=== PATIENT | male | born 1950 | race Caucasian/White ===

== ENCOUNTER 2016-04-03 15:36 | Inpatient (IN) | payer OTHER ==
[~2016-04-03] VITALS: Ht 188 cm; Wt 76.5 kg
[~2016-04-03 15:36] MED LIST: CARV25TA2 PO; DIGO0.2576 PO; KPP/1000 PO; LOSA1TAB PO; WARF-284 PO; WARF5TAB90 PO
[2016-04-03] MEDS ORDERED: SODIUM CHLORIDE 0.9% 1000ML 1,000 ML IV STA (15:44)
[2016-04-03] MEDS ORDERED: DIPHTHERIA/TETANUS/PERTUSSIS 0.5 ML SYR/VIAL IM. ONE (15:45)
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
[2016-04-03] MEDS ORDERED: DIGOXIN 0.125 MG TAB PO SCH (16:00)
[2016-04-03] MEDS ORDERED: WARFARIN SOD 5 MG TAB PO SCH (16:00)
[2016-04-03] MEDS ORDERED: OPTIRAY 320 IV PRN (16:00)
[2016-04-03 16:08] LABS: ISTAT CREATININE 0.8 mg/dl (0.6-1.3); ISTAT HEMOGLOBIN 15.6 g/dl (14.0-18.0); ISTAT IONIZED CALCIUM 1.24 mmol/l (1.12-1.32)
[2016-04-03] MEDS ORDERED: LEVE750T PO (16:14)
[2016-04-03] MEDS ORDERED: WARF5TAB90 PO (16:14)
[2016-04-03] MEDS ORDERED: LNX125 PO (16:14)
[2016-04-03 16:15] LABS: BASO % 0.3 %; BASO ABS # 0.04 K/uL (0-0.2); COMPLETE YES; EOS % 3.5 %; HEMATOCRIT 45.3 % (42-52); IG% 0.3 %; LYMPH % 9.7 %; LYMPH ABS # 1.15 K/uL (1.2-3.4); MEAN CELL VOLUME 82.8 fL (80-100); MEAN CORPUSCULAR HEMOGLOBIN 28.9 pg (25-34); MEAN CORPUSCULAR HGB CONC 34.9 g/dl (32-36); MEAN PLATELET VOLUME 10.7 fL (7.4-10.4); MONO % 9.4 %; NEUT % 76.8 %; PLATELET COUNT 156 K/uL (130-400); RED BLOOD COUNT 5.47 M/uL (4.7-6.1); WHITE BLOOD COUNT 11.84 K/uL (4.8-10.8)
[2016-04-03 16:30] LABS: INR 2.6 (0.9-1.1); PARTIAL THROMBOPLASTIN RATIO 1.7; PROTHROMBIN TIME (PATIENT) 28.5 SECONDS (9.0-12.0)
[2016-04-03 16:37] LABS: BLOOD UREA NITROGEN 12 mg/dl (7-18); BUN/CREATININE RATIO 13.2 (10-20); CALCIUM 9.1 mg/dl (8.5-10.1); CARBON DIOXIDE 31 mmol/L (21-32); CHLORIDE 102 mmol/L (98-107); CREATININE 0.94 mg/dl (0.60-1.40); GLUCOSE 103 mg/dl (70-99); POTASSIUM 4.5 mmol/L (3.5-5.1); SODIUM 138 mmol/L (136-145)
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
[2016-04-03 18:41] LABS: CKMB/CK RATIO 1.6 (0-3.0)
[2016-04-03] MEDS ORDERED: LORAZEPAM 2 MG/ML 1 ML VIAL IV PRN (18:45)
[2016-04-03] MEDS ORDERED: ONDANSETRON INJ 2 MG/ML 2 ML VIAL IV PRN (18:45)
[2016-04-03] MEDS ORDERED: ACETAMINOPHEN 325 MG TAB PO PRN (18:45)
[2016-04-03] MEDS ORDERED: NITROGLYCERIN 0.4 MG SL PER TAB CHARGE SL PRN (18:45)
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
[2016-04-03] MEDS ORDERED: MoRPHine SULFATE 2 MG/ML CARP IV PRN (19:15)
[2016-04-03 19:52] VITALS: O2SAT 97
[2016-04-03 20:30] VITALS: BP 163/81; PULSE 110; TEMP 36.8; Ht 188 cm; Wt 76.5 kg
[2016-04-03] MEDS ORDERED: FISHOIL PO (21:17)
[2016-04-03] MEDS ORDERED: LORAZEPAM INJ 1 MG in SYRINGE 0.5 ML IV PRN (21:45)
[2016-04-03] MEDS: LEVETIRACETAM 500 MG TAB PO SCH (22:35)
[2016-04-03] MEDS: CARVEDILOL 25 MG TAB PO SCH (22:36)
[2016-04-03] MEDS: OMEGA-3 (PURIFIED FISH OIL) 1 GM CAP PO SCH (22:37)
[2016-04-04 00:18] VITALS: BP 158/81; PULSE 86; TEMP 36.8; O2SAT 91
[2016-04-04 04:15] VITALS: BP 104/61; PULSE 75; TEMP 36.8; O2SAT 92
[2016-04-04 07:42] LABS: HEMATOCRIT 41.2 % (42-52); MEAN CELL VOLUME 81.9 fL (80-100); MEAN CORPUSCULAR HEMOGLOBIN 28.6 pg (25-34); MEAN PLATELET VOLUME 9.9 fL (7.4-10.4); PLATELET COUNT 126 K/uL (130-400); RED BLOOD COUNT 5.03 M/uL (4.7-6.1)
[2016-04-04 07:50] LABS: INR 2.3 (0.9-1.1); PROTHROMBIN TIME (PATIENT) 25.1 SECONDS (9.0-12.0)
[2016-04-04] MEDS: LEVETIRACETAM 500 MG TAB PO SCH (08:16)
[2016-04-04] MEDS: OMEGA-3 (PURIFIED FISH OIL) 1 GM CAP PO SCH (08:17)
[2016-04-04] MEDS: CARVEDILOL 25 MG TAB PO SCH (08:17)
[2016-04-04 08:19] VITALS: BP 144/84; PULSE 76
[2016-04-04 08:23] VITALS: BP 126/72; PULSE 55; TEMP 36.8; O2SAT 97
[2016-04-04 08:23] LABS: BUN/CREATININE RATIO 11.4 (10-20); CALCIUM 8.5 mg/dl (8.5-10.1); CREATININE 0.83 mg/dl (0.60-1.40); MAGNESIUM 2.1 mg/dl (1.8-2.4); POTASSIUM 3.9 mmol/L (3.5-5.1)
[2016-04-04] MEDS ORDERED: LOSARTAN POTASSIUM 25 MG TAB PO SCH (09:00)
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
[2016-04-04 11:30] VITALS: BP 118/73; PULSE 73; TEMP 36.8; O2SAT 93
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
--- NOTE | 2016-04-04 17:25 | ECHOCARDIOGRAM REPORT ---
*NOTICE TO RECEIVING DEMOCRAT AGENCY This information is strictly Confidential and protected under [place] law. [place] law prohibits you from making any further disclosure of this information unless further disclosure is expressly permitted by the written consent of the person to whom it pertains or is authorized by law. A general authorization for the release of medical or other information is not sufficient for this purpose. Hospital accepts no responsibility if the information is made available to any other person, INCLUDING THE PATIENT. Interpretation Summary * Name: TERESA STAPLETON V Study Date: 04/04/2016 10:11 AM BP: 126/72 mmHg * Patient Location: [facility]\S\N287\S\1 HR: 55 * : 1950 (M/d/yyyy) Gender: Male Height: 74 in * Age: 65 yrs Ethnicity: [place] Weight: 168 lb * Ordering Physician: Priyanka Clark * Referring Physician: RICK * Performed By: Mari Rossi RDCS * * Reason For Study: PERICARDIAL DISEASE * BSA: 2.0 m2 * History: PERICARDIAL DISEASE * -- Conclusions -- * 1. Mildly dilated LV. Mild concentric LVH. * 2. Low normal LV systolic function. LVEF 50-55%. No regional wall motion abnormalities. * 3. Borderline dilated RV, normal RV function * 4. Hczf-ax-xwybtkcq eccentric MR. * 5. Normal estimated RA and PA pressures * 6. No pericardial effusion. * 7. Compared with prior study on 10/28/2011: No significant change Procedure Details * A complete two-dimensional transthoracic echocardiogram was performed (2D, M-mode, Doppler and color flow Doppler). Left Ventricle * The left ventricle is mildly dilated. * There is mild concentric left ventricular hypertrophy. * Ejection Fraction = 50-55%. Right Ventricle * There is a pacemaker lead in the right ventricle. * Borderline right ventricular enlargement. * The right ventricular systolic function is normal as assessed by tricuspid annular plane systolic excursion (TAPSE) (normal >1.5 cm). Atria * The left atrium is severely dilated. * The right atrium is severely dilated. * No ASD detected; PFO is not assessed. Mitral Valve * The mitral valve leaflets appear thickened, but open well. * There is no mitral valve stenosis. * There is mild to moderate mitral regurgitation. * The mitral regurgitant jet is eccentrically directed. Tricuspid Valve * The tricuspid valve is not well visualized. * There is no tricuspid stenosis. * There is mild tricuspid regurgitation. Aortic Valve * The aortic valve opens well. * The aortic valve is trileaflet. * No hemodynamically significant valvular aortic stenosis. * There is no significant aortic regurgitation. Pulmonic Valve * The pulmonary valve is inadequately visualized, but the Doppler data is adequate for interpretation. * Pulmonic stenosis is absent. * There is no pulmonic valvular regurgitation. Great Vessels * The aortic root and proximal ascending aorta are normal sized. Pericardium/Pleural * There is no pericardial effusion. Great Vessels * Normal inferior vena cava diameter and respiratory variation suggests normal central venous pressure. MMode 2D Measurements and Calculations IVSd 1.2 cm IVSs 1.7 cm LVIDd 5.5 cm LVIDs 3.9 cm LVPWd 1.8 cm LVPWs 2.1 cm IVS/LVPW 0.68 FS 29.1 % EDV(Teich) 145.0 ml ESV(Teich) 64.7 ml EF(Teich) 55.4 % EDV(cubed) 162.8 ml ESV(cubed) 57.9 ml EF(cubed) 64.4 % % IVS thick 43.3 % % LVPW thick 16.9 % LV mass(C)d 362.0 grams LV mass(C)dI 179.4 grams/m\S\2 LV mass(C)s 324.7 grams LV mass(C)sI 160.9 grams/m\S\2 SV(Teich) 80.3 ml SI(Teich) 39.8 ml/m\S\2 SV(cubed) 104.8 ml SI(cubed) 52.0 ml/m\S\2 LA dimension 5.2 cm LVAd ap4 30.5 cm\S\2 LVLd ap4 8.0 cm EDV(MOD-sp4) 101.3 ml EDV(sp4-el) 98.1 ml LVAs ap4 20.0 cm\S\2 LVLs ap4 7.5 cm ESV(MOD-sp4) 49.3 ml ESV(sp4-el) 45.8 ml EF(MOD-sp4) 51.3 % EF(sp4-el) 53.3 % LVAd ap2 31.1 cm\S\2 LVLd ap2 8.0 cm EDV(MOD-sp2) 99.5 ml EDV(sp2-el) 102.8 ml LVAs ap2 19.9 cm\S\2 LVLs ap2 7.0 cm ESV(MOD-sp2) 53.8 ml ESV(sp2-el) 48.5 ml EF(MOD-sp2) 45.9 % EF(sp2-el) 52.8 % LVLd %diff -0.80 % EDV(MOD-bp) 100.7 ml LVLs %diff -7.15 % ESV(MOD-bp) 52.8 ml EF(MOD-bp) 47.5 % SV(MOD-sp4) 51.9 ml SI(MOD-sp4) 25.7 ml/m\S\2 SV(MOD-sp2) 45.7 ml SI(MOD-sp2) 22.6 ml/m\S\2 SV(MOD-bp) 47.9 ml SI(MOD-bp) 23.7 ml/m\S\2 SV(sp4-el) 52.3 ml SI(sp4-el) 25.9 ml/m\S\2 SV(sp2-el) 54.3 ml SI(sp2-el) 26.9 ml/m\S\2 Doppler Measurements and Calculations MV E max monique 85.4 cm/sec MV dec time 0.33 sec Ao V2 max 97.3 cm/sec Ao max PG 3.8 mmHg Ao max PG (full) 2.4 mmHg LV V1 max PG 1.4 mmHg LV V1 max 59.2 cm/sec MR max monique 434.4 cm/sec MR max PG 75.5 mmHg TR max monique 221.8 cm/sec
[2016-04-05] MEDS ORDERED: WARFARIN SOD 7.5 MG TAB PO SCH (16:00)
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
== END 2016-04-04 16:02 | disposition left against medical advice (07) | DRG 312 ==
LOC: ENRESERVTM → ENRESERVDT → EDBD 15:36 → C.EDC 15:38 → C.MED 18:37
PROVIDERS: ADMIT Internal Medicine; ATTEND Internal Medicine
DX: R55 Syncope and collapse (principal); I31.3 Pericardial effusion (noninflammatory); I42.9 Cardiomyopathy, unspecified; D68.61 Antiphospholipid syndrome; S22.41XA Multiple fractures of ribs, right side, initial encounter for closed fracture; V89.2XXA Person injured in unspecified motor-vehicle accident, traffic, initial encounter; R41.82 Altered mental status, unspecified; E78.5 Hyperlipidemia, unspecified; R91.1 Solitary pulmonary nodule; I48.2 Chronic atrial fibrillation; I10 Essential (primary) hypertension; G40.909 Epilepsy, unspecified, not intractable, without status epilepticus; I34.0 Nonrheumatic mitral (valve) insufficiency; I71.2 Thoracic aortic aneurysm, without rupture; F17.210 Nicotine dependence, cigarettes, uncomplicated; Z95.810 Presence of automatic (implantable) cardiac defibrillator; Z23 Encounter for immunization; Z87.74 Personal history of (corrected) congenital malformations of heart and circulatory system; Z79.01 Long term (current) use of anticoagulants; Z79.899 Other long term (current) drug therapy; Z53.21 Procedure and treatment not carried out due to patient leaving prior to being seen by health care provider

== ENCOUNTER → 2016-07-30 | Outpatient (CLI) | payer OTHER ==
[~2016-07-30] MED LIST changes: -DIGO0.2576 PO; +FISHOIL PO; -KPP/1000 PO; +LEVE750T PO; +LNX125 PO; -WARF-284 PO
== END | disposition home or self-care (01) ==
LOC: C.LABPBG 11:21
PROVIDERS: ATTEND Internal Medicine
DX: I48.2 Chronic atrial fibrillation (principal); Z11.59 Encounter for screening for other viral diseases; Z79.01 Long term (current) use of anticoagulants

== ENCOUNTER → 2016-08-09 | Outpatient (CLI) | payer OTHER ==
[2016-08-09 12:25] LABS: BASO % 0.5 %; BASO ABS # 0.05 K/uL (0-0.2); COMPLETE YES; EOS % 5.5 %; HEMATOCRIT 44.2 % (42-52); IG% 0.3 %; LYMPH % 18.6 %; LYMPH ABS # 1.77 K/uL (1.2-3.4); MEAN CELL VOLUME 85.2 fL (80-100); MEAN CORPUSCULAR HEMOGLOBIN 29.1 pg (25-34); MEAN CORPUSCULAR HGB CONC 34.2 g/dl (32-36); NEUT % 67.1 %; PLATELET COUNT 135 K/uL (130-400); RED BLOOD COUNT 5.19 M/uL (4.7-6.1); WHITE BLOOD COUNT 9.52 K/uL (4.8-10.8)
[2016-08-09 13:00] LABS: CALCIUM 9.3 mg/dl (8.5-10.1)
[2016-08-09 13:03] LABS: ALT/SGPT 18 U/L (12-78); BLOOD UREA NITROGEN 9 mg/dl (7-18); CARBON DIOXIDE 30 mmol/L (21-32); CHLORIDE 99 mmol/L (98-107); CREATININE 0.94 mg/dl (0.60-1.40); GLUCOSE 131 mg/dl (70-99); POTASSIUM 4.8 mmol/L (3.5-5.1); SODIUM 134 mmol/L (136-145)
[2016-08-09 13:14] LABS: ALB/GLOB RATIO 0.9 (0.9-2); ALKALINE PHOSPHATASE 51 U/L (45-117); AST/SGOT 15 U/L (15-37)
== END | disposition home or self-care (01) ==
LOC: C.LABPBG 10:25
PROVIDERS: ATTEND Internal Medicine
DX: Z51.81 Encounter for therapeutic drug level monitoring (principal); R53.83 Other fatigue

== ENCOUNTER → 2016-12-26 | Outpatient (CLI) | payer OTHER ==
--- NOTE | 2016-12-26 14:08 | DIAGNOSTIC IMAGING REPORT ---
(CHEST) THORAX WITHOUT CLINICAL HISTORY: 66 years-old Male presenting with ABNORMAL CHEST XRAY. TECHNIQUE: Multidetector CT imaging of the chest was performed without the use of intravenous contrast. IV contrast: None. A dose lowering technique was used consistent with the principles of ALARA (as low as reasonably achievable). COMPARISON: 04/03/2016. CT DOSE (mGy.cm): The estimated cumulative dose is 308.34 mGycm. FINDINGS: Registered Radiologic Technologist topogram: Unremarkable. On soft tissue windows, left-sided pacer with leads to the right ventricular apex. Scattered prominent mediastinal lymph nodes measuring up to 9 mm in short axis in the precarinal region. Evaluation of the ana paula is limited in the absence of intravenous contrast. Mild atherosclerosis of the aortic arch. Mild multichamber enlargement of the heart. Possible postsurgical changes of the interatrial septum. Coronary artery and mitral annular calcification. No pericardial or pleural effusion. Multiple nonobstructing renal calculi bilaterally. Severe parenchymal atrophy of the pancreas. On lung windows, dependent changes at the lung bases as well as bandlike opacity in the left lower lobe likely atelectasis. Incidental note made of an azygos lobe. Irregular solid peripheral 6 mm fissural nodule in the right upper lobe (series 4 image 148). Mild smooth interlobular septal thickening noted at the lung bases. Minimal groundglass opacity dependently in the posterior apical left upper lobe (series 4 image 65). Mild mosaic attenuation at the lung bases could suggest small airways disease. Airways patent. On bone windows, degenerative changes of the spine. IMPRESSION: 1. Stable appearance of the right upper lobe nodularity, unchanged since 12/09/2015. No new pulmonary nodule. 2. Mild interlobular septal thickening could suggest volume overload in the setting of cardiomegaly. No andrea pulmonary edema. 3. No acute intrathoracic pathology. 4. Multiple nonobstructing renal calculi bilaterally. Please refer to below summary of Fleischner Society 2017 recommendations for follow-up of incidental CT nodules (Doc Torres et al. Guidelines for management of incidental pulmonary nodules detected on CT images: From the Fleischner Society 2017. Radiology 2017; 284: 228-243.) SOLID NODULES Single nodule; size < 6 mm * Low risk patients: No routine follow-up * High risk patients: Optional CT at 12 months Single nodule; size 6-8 mm * Low risk patients: CT at 6-12 months, then consider CT at 18-24 months * High risk patients: CT at 6-12 months, then at 18-24 months Single nodule; size > 8 mm * Either low or high risk patients: Considered CT at 3 months, PET/CT, or tissue sampling Multiple nodules; size < 6 mm * Low risk patients: No routine follow up * High risk patients: Optional CT at 12 months Multiple nodules; size 6-8 mm * Low risk patients: CT at 3-6 months, then consider CT at 18-24 months * High risk patients: CT at 3-6 months, then at 18-24 months Multiple nodules; size > 8 mm * Low risk patients: CT at 3-6 months, then consider at 18-24 months * High risk patients: CT at 3-6 months, then at 18-24 months Note: These guidelines apply to incidental nodules. These guidelines do not apply to patients younger than 35 years, immunocompromised patients, or patients with cancer. * Low risk patients: Minimal or absent history of smoking and/or other known risk factors * High risk patients: History of smoking, exposure to other carcinogens, emphysema, fibrosis, upper lobe location, family history of lung cancer, etc. * If a nodule up to 8 mm is partly solid or is ground glass, further follow-up is required after 24 months to exclude possible slow growing adenocarcinoma. SUBSOLID NODULES Single ground-glass nodule * Nodule size < 6 mm: No routine follow-up * Nodule size > or = 6 mm: CT at 6-12 months to confirm persistence, then CT every 2 years until 5 years Single part-solid nodule * Nodule size < 6 mm: No routine follow-up * Nodules size > or = 6 mm: CT at 3-6 months to confirm persistence. If unchanged and solid component remains < 6 mm, annual CT should be performed for 5 years Multiple nodules * Nodule size < 6 mm: CT at 3-6 months. If stable, consider CT at 2 and 4 years. * Nodules size > or = 6 mm: CT at 3-6 months. Subsequent management based on the most suspicious nodule(s) Electronically signed by: Marino Vu M.D. 12/26/2016 2:06 PM Dictated Date/Time: 12/26/2016 1:58 PM
== END | disposition home or self-care (01) ==
LOC: C.CTS 13:44
PROVIDERS: ATTEND Internal Medicine
DX: R93.8 Abnormal findings on diagnostic imaging of other specified body structures (principal); R91.1 Solitary pulmonary nodule; N20.0 Calculus of kidney

== ENCOUNTER → 2017-10-29 | Outpatient (CLI) | payer OTHER ==
[2017-10-29 13:06] LABS: BASO % 0.5 %; BASO ABS # 0.04 K/uL (0-0.2); EOS % 6.8 %; EOS ABS # 0.56 K/uL (0-0.5); HEMATOCRIT 43.2 % (42-52); IG# 0.02 K/uL (0.00-0.02); LYMPH % 15.3 %; LYMPH ABS # 1.27 K/uL (1.2-3.4); MEAN CELL VOLUME 84.4 fL (80-100); MEAN CORPUSCULAR HEMOGLOBIN 29.3 pg (25-34); MEAN CORPUSCULAR HGB CONC 34.7 g/dl (32-36); MEAN PLATELET VOLUME 11.4 fL (7.4-10.4); MONO % 7.2 %; PLATELET COUNT 124 K/uL (130-400); RED CELL DISTRIBUTION WIDTH CV 13.9 % (11.5-14.5); RED CELL DISTRIBUTION WIDTH SD 42.4 fL (36.4-46.3); WHITE BLOOD COUNT 8.29 K/uL (4.8-10.8)
[2017-10-29 13:27] LABS: ALBUMIN 3.1 gm/dl (3.4-5.0); ALKALINE PHOSPHATASE 50 U/L (45-117); ALT/SGPT 15 U/L (12-78); AST/SGOT 14 U/L (15-37); BLOOD UREA NITROGEN 8 mg/dl (7-18); CALCIUM 8.4 mg/dl (8.5-10.1); CARBON DIOXIDE 29 mmol/L (21-32); CHOLESTEROL 130 mg/dl (0-200); CREATININE 0.97 mg/dl (0.60-1.40); GLUCOSE 100 mg/dl (70-99); LDL CHOLESTEROL CALCULATED 87 mg/dl; POTASSIUM 4.3 mmol/L (3.5-5.1); SODIUM 134 mmol/L (136-145); TOTAL PROTEIN 6.4 gm/dl (6.4-8.2)
== END | disposition home or self-care (01) ==
LOC: C.LABPBG 08:17
PROVIDERS: ATTEND Internal Medicine
DX: I47.2 Ventricular tachycardia (principal)